=== PATIENT | female | born 1995 | race Caucasian/White ===

== ENCOUNTER 2021-09-14 04:59 | Emergency (ER) | payer OTHER, SELFPAY ==
[~2021-09-14] VITALS: Ht 165.1 cm; Wt 61.3 kg
[~2021-09-14 04:59] MED LIST: CEPH500T PO
[2021-09-14 05:16] VITALS: BP 115/63
--- NOTE | 2021-09-14 05:20 | NUR ---
26 Y/O F BIB BF FOR THROAT PAIN R/T EMESIS X5 DAYS TODAY. PT STATED SHE IS 2/3 WEEKS AND HAS BEEN NAUSEATED AND VOMITED MORE THAN 5X TODAY. PT WAS SEEN HERE ON FRIDAY FOR KIDNEY INFECTION. PT WAS PRESCRIBED ANTIBIOTICS. PT STATES THIS IS HER [address] . . PT HAS HAD NOT SPOTTING THUS FAR AND HAD 1ST APPT MADE FOR CARE. ALLERGIES: NKA PMH: KIDNEY STONES, KIDNEY INFECTION
--- NOTE | 2021-09-14 05:21 | NUR ---
PT TAKEN TO BED 7
--- NOTE | 2021-09-14 05:24 | NUR ---
PROVIDED PT WITH WARM BLANKET
[2021-09-14] MEDS ORDERED: PYRI-218 PO (05:41)
[2021-09-14] MEDS ORDERED: DOXY25TA30 PO (05:41)
[2021-09-14] MEDS ORDERED: ONDA-188 SL (05:41)
[2021-09-14] MEDS ORDERED: ACETAMINOPHEN 325 MG TAB PO ONE (05:45)
[2021-09-14] MEDS ORDERED: METOCLOPRAMIDE 10 MG TAB PO ONE (05:45)
[2021-09-14] MEDS ORDERED: ONDANSETRON 4 MG ODT PO ONE (05:45)
[2021-09-14 06:20] VITALS: BP 143/58
--- NOTE | 2021-09-14 06:20 | NUR ---
Patient discharged with v/s stable. Written and verbal after care instructions given and explained. Patient alert, oriented and verbalized understanding of instructions. Ambulatory with steady gait. All questions addressed prior to discharge. ID band removed. Patient advised to follow up with PMD. Rx of DOXYLAMINE SUCCINATE, ZOFRAN ODT, VITAMIN B-6 given. Opportunity to ask questions provided and answered.
--- NOTE | 2021-09-14 06:33 | NUR ---
The patient's care was reviewed and supervised by Rebekah Ferrell RN.
== END 2021-09-14 06:20 | disposition home or self-care (01) ==
LOC: MED 04:59
DX: J02.9 Acute pharyngitis, unspecified (principal); R11.2 Nausea with vomiting, unspecified; Z79.899 Other long term (current) drug therapy
CPT/HCPCS: 99284; J8597; Q0162